=== PATIENT | female | born 1960 | race African-American/Black ===

== ENCOUNTER 2019-04-01 09:45 | Emergency (ER) | payer OTHER ==
[~2019-04-01] VITALS: Ht 157.5 cm; Wt 96.0 kg
[2019-04-01 11:58] VITALS: BP 138/77
== END 2019-04-01 14:58 | disposition left against medical advice (07) ==
LOC: ER 09:45
DX: Z53.21 Procedure and treatment not carried out due to patient leaving prior to being seen by health care provider (principal); E11.9 Type 2 diabetes mellitus without complications; Z88.0 Allergy status to penicillin